=== PATIENT | female | born 1990 | race American Indian/Alaskan Native ===

== ENCOUNTER 2016-11-21 05:07 | Inpatient (IN) | payer MEDICARE ==
[2016-11-21] MEDS ORDERED: LACTATED RINGERS 500 ML IV ONE (05:26)
[2016-11-21] MEDS ORDERED: LACTATED RINGERS 1,000 ML ONE ×3 (05:31→14:41)
[2016-11-21 05:46] LABS: Bilirubin,Urine NEG (Negative); Blood,Urine SM (Negative); Ketones,Urine NEG (Negative); Leukocyte Esterase,Urine TR (Negative); Mucus,Urine FEW /HPF; Nitrite,Urine NEG (Negative); Protein,Urine <15 mg/dL mg/dL (Negative); Urobilinogen,Urine < 2.0 mg/dL (<2.0)
[2016-11-21 06:15] LABS: Hematocrit 35.8 % (30.3-42.9); Hemoglobin 11.6 gm/dl (10.1-14.3); Mean Corpuscular HGB Conc 32 % (30-34); Mean Corpuscular Hemoglobin 29 pg (28-32); Mean Corpuscular Volume 89 fl (79-97); Platelet Count 227 K/mm3 (140-440); Red Blood Count 4.02 M/mm3 (3.65-5.03); Red Cell Distribution Width 14.3 % (13.2-15.2); White Blood Count 8.5 K/mm3 (4.5-11.0)
[2016-11-21 06:36] LABS: Alanine Aminotransferase 7 units/L (7-56); Lactate Dehydrogenase 197 units/L (91-180); Uric Acid 3.3 mg/dL (3.5-7.6)
--- NOTE | 2016-11-21 07:43 | History and Physical Report ---
History of Present Illness Date of examination: 11/21/16 Chief complaint: Uterine contractions, nausea vomiting and diarrhea x 24 hours History of present illness: 26-year-old at ~ 33+ weeks presents with above complaints and issues; she uses [facility] patient. Essential history is patient with nausea vomiting and diarrhea; presents due to painful contractions. No loss of fluid, vaginal bleeding plus movement In triage, patient's blood pressure was noted to be elevated with range 140s to 150s systolic over 70s to 90s diastolic; she is asymptomatic for preeclampsia. HELLP labs obtained are negative; urinalysis shows negative proteinuria Blood pressure in clinic has been unremarkable per patient. She does have a history of elevated blood pressures in her prior 2014; work-up for preeclampsia was negative. Review of the chart shows a visit in March 2015 with blood pressure noted in the emergency room on 130/90, unsure of her primary care visits while not . She has almost completed a course of Flagyl given for BV in the clinic Past History Past Medical History: no pertinent history Past Surgical History: no surgical history [employer]ER History: denies: chlamydia, gonorrhea, hepatitis B, hepatitis C, HIV, trichomonas Social history: single, full code. denies: smoking, alcohol abuse, prescription drug abuse, IV drug use - Obstetrical History Expected Date of Delivery: 01/09/17 Actual Gestation: 33 Week(s) 0 Day(s) : 4 Para: 1 Medications and Allergies Allergies Allergy/AdvReac Type Severity Reaction Status Date / Time No Known Allergies Allergy Verified 08/15/15 16:15 Home Medications Medication Instructions Recorded Confirmed Last Taken Type Ibuprofen [Motrin 800 MG tab] 800 mg PO Q8HR PRN #30 tablet 03/07/16 Unknown Rx Phenazopyridine [Pyridium] 100 mg PO TID #6 tab 03/07/16 Unknown Rx Sulfamethoxazole/Trimethoprim 1 each PO BID #14 tablet 03/07/16 Unknown Rx [Bactrim DS TAB] metroNIDAZOLE 0.75% [Vandazole 1 applicator VG QHS #1 tube 03/07/16 Unknown Rx 0.75% VAGINAL] Review of Systems Constitutional: weakness, no fever, no chills Eyes: no photophobia, no loss of peripheral vision, no blind spots Cardiovascular: no syncope, no lightheadedness, no shortness of breath, no dyspnea on exertion Respiratory: no shortness of breath, no dyspnea on exertion Gastrointestinal: abdominal pain (Intermittent painful contractions), nausea, vomiting, no heartburn, no indigestion Genitourinary: no vaginal bleeding, no vaginal discharge, no leakage of fluid - Vital Signs Vital signs: Vital Signs Pulse BP Pulse Ox 97 H 150/95 99 11/21/16 05:22 11/21/16 05:22 11/21/16 05:22 Temp Pulse Resp BP Pulse Ox 98.8 F 90 20 142/75 99 11/21/16 05:25 11/21/16 07:32 11/21/16 05:25 11/21/16 07:27 11/21/16 07:32 - Physical Exam Cardiovascular: Regular rate, Normal S1, Normal S2 Lungs: Positive: Clear to auscultation, Normal air movement Abdomen: Positive: normal appearance, soft. Negative: distention, tenderness, guarding, rigidity Genitourinary (Female): Positive: normal external genitalia Uterus: Positive: enlarged (EFW ~ 3200). Negative: tender Extremities: Positive: normal - Obstetrical FHR: category 1 Results Result Diagrams: 11/21/16 05:50 11/21/16 05:50 Abnormal lab results 11/21/16 Range/Units 05:50 Creatinine 0.3 L (0.7-1.2) mg/dL Uric Acid 3.3 L (3.5-7.6) mg/dL Lactate Dehydrogenase 197 H (91-180) units/L All other labs normal. Assessment and Plan A: 26 y/o at 33 wks with elevated BP ?Gestational HTN -Cat 1 tracing Issues -BP range 140-150's/70-90's -Negative HELLP labs and UA -?Gastro E (N/V and diarrhea), NB: normal WBC - Ctx's P: -Admit observation -IV hydration -24 hour urine protein collection -Growth Scan, BPP and cervical length -Will start anti-HTN, Mag and consider BMZ course for BP in severe range -Disposition after w/u complete - Patient Problems (1) 33 weeks gestation of Current Visit: Yes Status: Acute (2) Hypertension affecting in third trimester Current Visit: No Status: Acute (3) Diarrhea Current Visit: Yes Status: Acute (4) Vomiting Current Visit: Yes Status: Acute
[2016-11-21] MEDS ORDERED: TYLENOL PO PRN ×2 (08:30)
[2016-11-21] MEDS ORDERED: COLACE PO PRN (08:30)
[2016-11-21] MEDS ORDERED: BENADRYL PO PRN (08:30)
[2016-11-21] MEDS ORDERED: APRESOLINE IV PRN (08:30)
[2016-11-21] MEDS ORDERED: D5LR 1,000 ML IV SCH (08:30)
[2016-11-21] MEDS ORDERED: NORMODYNE IV PRN (08:30)
[2016-11-21] MEDS ORDERED: ZOFRAN IV PRN (08:30)
[2016-11-21] MEDS ORDERED: PRENATAL VITAMIN PO SCH (10:00)
--- NOTE | 2016-11-21 10:12 | Ultrasound Report ---
BIOPHYSICAL PROFILE: INDICATION: Elevated BP. COMPARISON: None similar. TECHNIQUE: Transabdominal ultrasound with Doppler interrogation. 0 - breathing movements 2 - movements 2 - posture and tone 2 - Qualitative amniotic fluid volume 6 - TOTAL SCORE OF POSSIBLE 8 Heart Rate (bpm) 137
--- NOTE | 2016-11-21 11:06 | Ultrasound Report ---
OB ULTRASOUND OB FOLLOWUP - TRANSABDOMINAL AND TRANSVAGINAL: INDICATION: Hypertension in . Evaluate cervical length. COMPARISON: None similar at this institution. TECHNIQUE: Transabdominal grayscale ultrasound with Doppler interrogation. Transvaginal exam to evaluate cervical length also performed. Gestation: mckeon Position: cephalic Amniotic Fluid: WNL (7-24 cm) MALIK = 14.6 cm Placenta: fundal Placental Grade: II Heart Rate: 135 BPM Cervical length: 3.7 cm (Normal > 3 cm) BPD: 8.3 cm = 33 w 2 d HC: 29.4 cm = 32 w 3 d AC: 29.5 cm = 33 w 4 d FL: 6.2 cm = 32 w 0 d HC/AC Ratio: 1.00 Cephalic Index: 91.3 Estimated Weight: 2082 grams LMP: 16 Clinical age = 33 w 0 d EDC: 17 US Gest. Age = 32 w 6 d EDC: 01-10-17 CONCLUSION: Single, viable intrauterine gestation with ultrasound estimated age of 32 weeks and 6 days and EDC of 01/10/2017, currently in cephalic lie with details, as above. Thank you for the opportunity to participate in this patient's care.
[2016-11-21 20:43] VITALS: BP 139/63
--- NOTE | 2016-11-21 23:17 | Event Note ---
Date: 11/21/16 Called and notified that patient left her room w/out notifying staff. She removed her IV access herself and walked out of the hospital.
== END 2016-11-21 21:30 | disposition still patient (30) | DRG 781 ==
LOC: TRG 05:07 → LD 07:59 → UNDOADMOB 07:59 → LD 08:21 → OBSVTOIN 09:14 → LD 23:49
PROVIDERS: ADMIT Obstetrics & Gynecology; ATTEND Obstetrics & Gynecology
DX: O10.913 Unspecified pre-existing hypertension complicating pregnancy, third trimester (principal); O26.893 Other specified pregnancy related conditions, third trimester; R19.7 Diarrhea, unspecified; R11.10 Vomiting, unspecified; Z3A.33 33 weeks gestation of pregnancy
CPT/HCPCS: 36415; 76816; 76817; 76819; 81001; 82565; 82731; 83615; 84450; 84460; 84550; 85027; 86850; 86900; 86901; J7120

== ENCOUNTER 2016-12-06 15:15 | Inpatient (IN) | payer MEDICAID, MEDICARE, OTHER ==
--- NOTE | 2016-12-06 16:35 | History and Physical Report ---
History of Present Illness Date of examination: 12/06/16 Chief complaint: Headache and dizziness History of present illness: 26-year-old at 35 weeks presents with above complaints and issues; she is a [facility] patient. Essential history is patient was seen at [facility] office today. She had a BP of 171/115 and repeat of 149/91 when seated. She denied symptoms of preeclampsia, had a BPP 8/8. [facility] recommendation was low threshold for delivery if BP remains elevated. Was asked to follow-up with her doctor if symptoms develop. She presented to [facility] today and complained of headache visual symptoms, she was refered here for further care. In triage, patient's blood pressure was noted to be elevated with range 140s systolic over 70s to 90s diastolic; she idoes complain of headache and spots, no scotomata. Review of chart shows seen admission on 11/21/2016 for similar complaint above. She left AGAINST MEDICAL ADVICE She does have a history of elevated blood pressures in her prior 2014 ; work-up for preeclampsia was negative. Review of the chart shows a visit in March 2015 with blood pressure noted in the emergency room on 130/90, unsure of her primary care visits while not . Past History Past Medical History: no pertinent history Past Surgical History: no surgical history [employer] History: denies: gonorrhea, hepatitis B, hepatitis C, HIV Social history: single, full code. denies: smoking, alcohol abuse, prescription drug abuse, IV drug use - Obstetrical History Expected Date of Delivery: 01/09/17 Actual Gestation: 35 Week(s) 2 Day(s) : 4 Para: 1 Number of Living Children: 1 Medications and Allergies Allergies Allergy/AdvReac Type Severity Reaction Status Date / Time No Known Allergies Allergy Verified 08/15/15 16:15 Home Medications Medication Instructions Recorded Confirmed Last Taken Type Ibuprofen [Motrin 800 MG tab] 800 mg PO Q8HR PRN #30 tablet 03/07/16 12/06/16 Unknown Rx Phenazopyridine [Pyridium] 100 mg PO TID #6 tab 03/07/16 12/06/16 Unknown Rx Sulfamethoxazole/Trimethoprim 1 each PO BID #14 tablet 03/07/16 12/06/16 Unknown Rx [Bactrim DS TAB] metroNIDAZOLE 0.75% [Vandazole 1 applicator VG QHS #1 tube 03/07/16 12/06/16 Unknown Rx 0.75% VAGINAL] Active Meds: Active Medications Lactated Ringer's (Lactated Ringers) 500 mls @ 999 mls/hr IV BOLUS ONE Stop: 12/06/16 17:30 Review of Systems Constitutional: no fever, no chills Cardiovascular: high blood pressure, no chest pain, no orthopnea, no syncope, no lightheadedness, no shortness of breath, no dyspnea on exertion Respiratory: no cough, no cough with sputum, no hemoptysis, no shortness of breath, no dyspnea on exertion Gastrointestinal: no abdominal pain, no nausea, no vomiting, no heartburn Genitourinary: no vaginal bleeding, no vaginal discharge, no leakage of fluid - Vital Signs Vital signs: Vital Signs Pulse BP Pulse Ox 68 140/100 100 12/06/16 16:16 12/06/16 16:16 12/06/16 16:16 Temp Pulse Resp BP Pulse Ox 58 L 140/100 99 12/06/16 16:21 12/06/16 16:16 12/06/16 16:21 - Physical Exam Cardiovascular: Regular rate, Normal S1, Normal S2 Lungs: Positive: Clear to auscultation Abdomen: Positive: normal appearance, soft. Negative: distention, tenderness, guarding, rigidity Uterus: Positive: enlarged. Negative: tender - Obstetrical FHR: category 1 Results Result Diagrams: 12/06/16 19:37 12/06/16 16:26 All other labs normal. Assessment and Plan A: 26 y/o at 35 wks presents with elevated BP in -BPP 8/ today -EFW 2467 g or 5#7 oz, cephalic, Post placenta (12/06/16) P: -Admit -Obtain HELLP labs -Re-start 24 hr urine protein -Start Mag and AntiHTN for severe range BP's -Celestone course -Disposition after results complete - Patient Problems (1) 35 weeks gestation of Current Visit: Yes Status: Acute (2) Hypertension affecting in third trimester Current Visit: No Status: Acute
[2016-12-06] MEDS ORDERED: ZOFRAN IV PRN (16:45)
[2016-12-06] MEDS ORDERED: MYLICON PO PRN (16:45)
[2016-12-06] MEDS ORDERED: ALUM-MAG HYDROX-SIMETH 200-200-20MG/5ML PO PRN (16:45)
[2016-12-06] MEDS ORDERED: MILK OF MAGNESIA PO PRN (16:45)
[2016-12-06] MEDS ORDERED: AMBIEN PO PRN (16:45)
[2016-12-06] MEDS ORDERED: COLACE PO PRN (16:45)
[2016-12-06 16:48] LABS: Hematocrit 32.9 % (30.3-42.9); Hemoglobin 10.9 gm/dl (10.1-14.3); Mean Corpuscular HGB Conc 33 % (30-34); Mean Corpuscular Hemoglobin 29 pg (28-32); Mean Corpuscular Volume 88 fl (79-97); Platelet Count 203 K/mm3 (140-440); Red Blood Count 3.75 M/mm3 (3.65-5.03); Red Cell Distribution Width 14.8 % (13.2-15.2); White Blood Count 7.1 K/mm3 (4.5-11.0)
[2016-12-06 16:54] LABS: Bilirubin,Urine NEG (Negative); Blood,Urine NEG (Negative); Ketones,Urine NEG (Negative); Leukocyte Esterase,Urine NEG (Negative); Mucus,Urine FEW /HPF; Nitrite,Urine NEG (Negative); Protein,Urine <15 mg/dL mg/dL (Negative); Urobilinogen,Urine < 2.0 mg/dL (<2.0)
[2016-12-06] MEDS ORDERED: LACTATED RINGERS 500 ML IV ONE (17:00)
[2016-12-06] MEDS ORDERED: CELESTONE SOLUSPAN IM SCH (17:00)
[2016-12-06 17:11] LABS: Alanine Aminotransferase 7 units/L (7-56); Lactate Dehydrogenase 283 units/L (91-180); Uric Acid 3.1 mg/dL (3.5-7.6)
[2016-12-06 20:15] LABS: Basophils % (Auto) 0.2 % (0.0-1.8); Eosinophils % (Auto) 2.4 % (0.0-4.3); Hematocrit 31.4 % (30.3-42.9); Hemoglobin 10.3 gm/dl (10.1-14.3); Mean Corpuscular HGB Conc 33 % (30-34); Mean Corpuscular Hemoglobin 29 pg (28-32); Mean Corpuscular Volume 88 fl (79-97); Platelet Count 187 K/mm3 (140-440); Red Blood Count 3.56 M/mm3 (3.65-5.03); Red Cell Distribution Width 14.6 % (13.2-15.2); White Blood Count 6.6 K/mm3 (4.5-11.0)
--- NOTE | 2016-12-06 23:11 | Progress Note ---
Assessment and Plan A: 26 y/o at 35 wks presents with elevated BP in -Cat 1 tracing now -BPP 06/11 today -EFW 2467 g or 5#7 oz, cephalic, Post placenta (12/06/16) P: -Continue present care - Patient Problems (1) 35 weeks gestation of Current Visit: Yes Status: Acute (2) Hypertension affecting in third trimester Current Visit: No Status: Acute Subjective - Subjective Date of service: 12/06/16 Interval history: Asked to review tracing. Currently with mod variabilty + accels no decels. Appears to have had mild latish appearing decels earlier but still with Mod variabilty and accels Patient reports: new complaints, movement normal, contractions ( Intermittent contractions), no loss of fluid, no vaginal bleeding Objective - Vital Signs Vital Signs: Vital Signs - 12hr 12/06/16 12/06/16 12/06/16 16:16 16:21 16:26 Temperature Pulse Rate 68 58 L 64 Pulse Rate [ Left From Monitor] Respiratory Rate Blood Pressure 140/100 Blood Pressure [Right Arm] O2 Sat by Pulse 100 99 100 Oximetry 12/06/16 12/06/16 12/06/16 16:31 16:36 16:41 Temperature Pulse Rate 67 70 75 Pulse Rate [ Left From Monitor] Respiratory Rate Blood Pressure Blood Pressure [Right Arm] O2 Sat by Pulse 100 100 100 Oximetry 12/06/16 12/06/16 12/06/16 16:46 16:51 16:56 Temperature Pulse Rate 64 70 65 Pulse Rate [ Left From Monitor] Respiratory Rate Blood Pressure Blood Pressure [Right Arm] O2 Sat by Pulse 100 99 99 Oximetry 12/06/16 12/06/16 12/06/16 17:01 17:06 17:11 Temperature Pulse Rate 76 65 69 Pulse Rate [ Left From Monitor] Respiratory Rate Blood Pressure 155/86 Blood Pressure [Right Arm] O2 Sat by Pulse 99 99 Oximetry 12/06/16 12/06/16 12/06/16 17:12 17:17 17:22 Temperature Pulse Rate 74 74 89 Pulse Rate [ Left From Monitor] Respiratory Rate Blood Pressure Blood Pressure [Right Arm] O2 Sat by Pulse 100 100 99 Oximetry 12/06/16 12/06/16 12/06/16 17:23 17:27 18:05 Temperature Pulse Rate 80 103 H 89 Pulse Rate [ Left From Monitor] Respiratory Rate Blood Pressure 190/100 Blood Pressure [Right Arm] O2 Sat by Pulse 99 99 Oximetry 12/06/16 12/06/16 12/06/16 18:08 18:10 18:15 Temperature Pulse Rate 67 68 78 Pulse Rate [ Left From Monitor] Respiratory Rate Blood Pressure 161/94 Blood Pressure [Right Arm] O2 Sat by Pulse 99 100 Oximetry 12/06/16 12/06/16 12/06/16 18:20 18:23 18:25 Temperature Pulse Rate 72 82 84 Pulse Rate [ Left From Monitor] Respiratory Rate Blood Pressure 158/84 Blood Pressure [Right Arm] O2 Sat by Pulse 99 100 Oximetry 12/06/16 12/06/16 12/06/16 18:30 18:35 18:37 Temperature Pulse Rate 103 H 79 68 Pulse Rate [ Left From Monitor] Respiratory Rate Blood Pressure 139/74 Blood Pressure [Right Arm] O2 Sat by Pulse 100 99 Oximetry 12/06/16 12/06/16 12/06/16 18:40 18:45 18:50 Temperature Pulse Rate 74 75 78 Pulse Rate [ Left From Monitor] Respiratory Rate Blood Pressure Blood Pressure [Right Arm] O2 Sat by Pulse 99 100 100 Oximetry 12/06/16 12/06/16 12/06/16 18:52 18:55 19:00 Temperature Pulse Rate 82 72 67 Pulse Rate [ Left From Monitor] Respiratory Rate Blood Pressure 148/78 Blood Pressure [Right Arm] O2 Sat by Pulse 100 98 Oximetry 12/06/16 12/06/16 12/06/16 19:05 19:07 19:10 Temperature Pulse Rate 75 73 70 Pulse Rate [ Left From Monitor] Respiratory Rate Blood Pressure 133/70 Blood Pressure [Right Arm] O2 Sat by Pulse 100 98 Oximetry 12/06/16 12/06/16 12/06/16 19:15 19:20 19:22 Temperature 98.2 F Pulse Rate 68 66 64 Pulse Rate [ 64 Left From Monitor] Respiratory 18 Rate Blood Pressure 139/73 Blood Pressure 139/73 [Right Arm] O2 Sat by Pulse 99 97 Oximetry 12/06/16 12/06/16 12/06/16 19:25 19:30 19:35 Temperature Pulse Rate 59 L 67 67 Pulse Rate [ Left From Monitor] Respiratory Rate Blood Pressure Blood Pressure [Right Arm] O2 Sat by Pulse 98 98 100 Oximetry 12/06/16 12/06/16 12/06/16 19:40 19:41 19:45 Temperature Pulse Rate 72 57 L 59 L Pulse Rate [ 57 L Left From Monitor] Respiratory 18 Rate Blood Pressure 146/68 Blood Pressure 146/68 [Right Arm] O2 Sat by Pulse 100 100 Oximetry 12/06/16 12/06/16 12/06/16 19:50 19:54 19:55 Temperature Pulse Rate 63 61 66 Pulse Rate [ 61 Left From Monitor] Respiratory 18 Rate Blood Pressure 130/69 Blood Pressure 130/69 [Right Arm] O2 Sat by Pulse 100 99 Oximetry 12/06/16 12/06/16 12/06/16 20:00 20:05 20:07 Temperature Pulse Rate 64 61 57 L Pulse Rate [ 57 L Left From Monitor] Respiratory 18 Rate Blood Pressure 122/63 Blood Pressure 122/63 [Right Arm] O2 Sat by Pulse 97 97 Oximetry 12/06/16 12/06/16 12/06/16 20:10 20:15 20:20 Temperature Pulse Rate 63 63 64 Pulse Rate [ Left From Monitor] Respiratory Rate Blood Pressure Blood Pressure [Right Arm] O2 Sat by Pulse 98 97 97 Oximetry 12/06/16 12/06/16 12/06/16 20:23 20:25 20:30 Temperature Pulse Rate 59 L 61 56 L Pulse Rate [ 59 L Left From Monitor] Respiratory 18 Rate Blood Pressure 114/75 Blood Pressure 114/75 [Right Arm] O2 Sat by Pulse 98 98 Oximetry 12/06/16 12/06/16 12/06/16 20:35 20:37 20:40 Temperature Pulse Rate 64 62 70 Pulse Rate [ 62 Left From Monitor] Respiratory 18 Rate Blood Pressure 122/76 Blood Pressure 122/76 [Right Arm] O2 Sat by Pulse 98 98 Oximetry 12/06/16 12/06/16 12/06/16 20:45 20:50 20:52 Temperature Pulse Rate 63 65 65 Pulse Rate [ 65 Left From Monitor] Respiratory 18 Rate Blood Pressure 128/73 Blood Pressure 128/73 [Right Arm] O2 Sat by Pulse 98 98 Oximetry 12/06/16 12/06/16 12/06/16 20:55 21:00 21:05 Temperature Pulse Rate 60 67 57 L Pulse Rate [ Left From Monitor] Respiratory Rate Blood Pressure Blood Pressure [Right Arm] O2 Sat by Pulse 99 98 98 Oximetry 12/06/16 12/06/16 12/06/16 21:08 21:10 21:15 Temperature Pulse Rate 60 57 L 57 L Pulse Rate [ 60 Left From Monitor] Respiratory 18 Rate Blood Pressure 147/86 Blood Pressure 147/86 [Right Arm] O2 Sat by Pulse 99 97 Oximetry 12/06/16 12/06/16 12/06/16 21:20 21:24 21:25 Temperature Pulse Rate 60 56 L 64 Pulse Rate [ Left From Monitor] Respiratory Rate Blood Pressure 136/77 Blood Pressure [Right Arm] O2 Sat by Pulse 98 98 Oximetry 12/06/16 12/06/16 12/06/16 21:30 21:35 21:37 Temperature Pulse Rate 57 L 63 79 Pulse Rate [ Left From Monitor] Respiratory Rate Blood Pressure Blood Pressure [Right Arm] O2 Sat by Pulse 97 98 91 Oximetry 12/06/16 12/06/16 12/06/16 21:40 21:45 21:50 Temperature Pulse Rate 64 58 L 62 Pulse Rate [ Left From Monitor] Respiratory Rate Blood Pressure 133/79 Blood Pressure [Right Arm] O2 Sat by Pulse 98 98 96 Oximetry 12/06/16 12/06/16 12/06/16 21:55 22:00 22:05 Temperature Pulse Rate 57 L 56 L 58 L Pulse Rate [ Left From Monitor] Respiratory Rate Blood Pressure Blood Pressure [Right Arm] O2 Sat by Pulse 98 98 98 Oximetry 12/06/16 12/06/16 12/06/16 22:10 22:15 22:20 Temperature Pulse Rate 59 L 61 60 Pulse Rate [ Left From Monitor] Respiratory Rate Blood Pressure Blood Pressure [Right Arm] O2 Sat by Pulse 97 97 97 Oximetry 12/06/16 12/06/16 22:25 22:43 Temperature Pulse Rate 57 L 56 L Pulse Rate [ Left From Monitor] Respiratory Rate Blood Pressure 137/71 Blood Pressure [Right Arm] O2 Sat by Pulse 99 Oximetry - Exam FHR: category 1 (At this time) - Labs Labs: Abnormal Labs 12/06/16 12/06/16 16:26 19:37 RBC 3.56 L [place] % (Auto) 7.9 H Creatinine 0.3 L Uric Acid 3.1 L Lactate Dehydrogenase 283 H Laboratory Results - last 24 hr 12/06/16 12/06/16 12/06/16 16:26 16:26 16:26 WBC 7.1 RBC 3.75 Hgb 10.9 Hct 32.9 MCV 88 MCH 29 MCHC 33 RDW 14.8 Plt Count 203 Lymph % (Auto) F[place] % (Auto) Eos % (Auto) Baso % (Auto) Lymph # Fountain # Eos # Baso # Seg Neutrophils % Seg Neutrophils # Creatinine 0.3 L Estimated GFR > 60 Uric Acid 3.1 L AST 20 ALT 7 Lactate Dehydrogenase 283 H Urine Color Yellow Urine Turbidity Clear Urine pH 7.0 Ur Specific [place] 1.017 Urine Protein <15 mg/dl Urine Glucose (UA) Neg Urine Ketones Neg Urine Blood Neg Urine Nitrite Neg Urine Bilirubin Neg Urine Urobilinogen < 2.0 Ur Leukocyte Esterase Neg Urine WBC (Auto) 1.0 Urine RBC (Auto) 1.0 U Epithel Cells (Auto) 1.0 Urine Mucus Few Blood Type Antibody Screen 12/06/16 12/06/16 19:37 19:37 WBC 6.6 RBC 3.56 L Hgb 10.3 Hct 31.4 MCV 88 MCH 29 MCHC 33 RDW 14.6 Plt Count 187 Lymph % (Auto) 28.0 [place] % (Auto) 7.9 H Eos % (Auto) 2.4 Baso % (Auto) 0.2 Lymph # 1.9 Fountain # 0.5 Eos # 0.2 Baso # 0.0 Seg Neutrophils % 61.5 Seg Neutrophils # 4.1 Creatinine Estimated GFR Uric Acid AST ALT Lactate Dehydrogenase Urine Color Urine Turbidity Urine pH Ur Specific [place] Urine Protein Urine Glucose (UA) Urine Ketones Urine Blood Urine Nitrite Urine Bilirubin Urine Urobilinogen Ur Leukocyte Esterase Urine WBC (Auto) Urine RBC (Auto) U Epithel Cells (Auto) Urine Mucus Blood Type B POSITIVE Antibody Screen Negative
[2016-12-06] MEDS ORDERED: LACTATED RINGERS 1,000 ML ONE (23:39)
--- NOTE | 2016-12-07 07:30 | Admit Criteria Form ---
Admission Criteria Documentation: OBSTETRIC AND GYNECOLOGIC DISEASE GRG Clinical Indications for Admission to Inpatient Care (Place 'X' for any and all applicable criteria): Hospital admission is needed for appropriate care of the patient because of ANY ONE of the following (1)(2)(3): [ ]I. Hemodynamic instability, as indicated by ALL of the following (1)(2)(3)( 4)(5): [ ]a) Vital signs or other findings not as expected for chronic patient condition or baseline [ ]b) Instability indicated by ANY ONE of the following: [ ]i) Hypotension [ ]ii) Symptomatic tachycardia unresponsive to treatment (eg, analgesia, fluids, sedation as indicated) [ ]iii) Inadequate perfusion indicated by ANY ONE of the following: [ ]A. Lactic acidosis (greater than 2 mmol/ L) [ ]B. New abnormal capillary refill ( greater than 3 seconds) [ ]C. Reduced urine output [ ]D. New altered mental status [ ]iv) Orthostatic vital sign changes unresponsive to treatment (eg, fluids) [ ]v) Multiple IV fluid boluses required to maintain adequate blood pressure or perfusion [ ]vi) IV inotropic or vasopressor medication required to maintain adequate blood pressure or perfusion [ ]II. Obstetric infection requiring hospitalization indicated by ANY ONE of the following(13)(14): [ ]a) Chorioamnionitis [ ]b) Endometritis (except mild endometritis) [ ]c) Pelvic abscess [ ]d) Peritonitis [ ]e) Septic pelvic thrombophlebitis [ ]III. Amniotic fluid or pulmonary embolism(4)(5)(6) [ ]IV. Suspected peritonitis or ectopic requiring monitoring beyond scope of 24 hours or observation care(7)(8) [ ]V. compromise requiring hospitalization indicated by ALL of the following(9)(10): [ ]a) compromise indicated by ANY ONE of the following(11): [ ]i) Abnormal heart rate monitoring [ ]ii) Abnormal contraction stress test [ ]iii) Abnormal biophysical profile [ ]iv) Abnormal Doppler flow in vessels (ie, Doppler velocimetry) (12) [ ]b) Persistence of compromise indicators during evaluation and observation monitoring [ ]. Ovarian hyperstimulation syndrome requiring hospitalization[A] indicated by ALL of the following(15): [ ]a) Recent ovarian stimulation with gonadotropins, or evidence on ultrasound of spontaneous emergence of large number of ovarian follicles [ ]b) Evidence of severe ovarian hyperstimulation syndrome indicated by ANY ONE of the following: [ ]i) Abdominal pain unresponsive to oral therapy [ ]ii) Acute respiratory distress syndrome [ ]iii) Electrolyte imbalance ( eg, hyponatremia, hyperkalemia) [ ]iv) Elevated liver enzymes [ ]v) Evidence of thromboembolism [ ]vi) Hemoconcentration (hematocrit greater than 45 % (0.45)) [ ]vii) Inability to maintain oral intake adequate to prevent hemoconcentration [ ]viii) Marked hypotension from baseline (eg, SBP 20 mmHg below patients usual pressure) [ ]ix) Oliguria or anuria [ ]x) Ovarian torsion [ ]xi) Pleural or pericardial effusion on x-ray or echocardiogram [ ]xii) Rapid increase in serum creatinine to greater than 1.2 mg/dL (106 micromoles/L) or creatinine clearance less than 50 mL/min/1.73m2 (0.84 mL/ sec/1.73m2) [ ]xiii) Ruptured ovarian cyst with hemorrhage [ ]xiv) Severe abdominal pain or peritoneal signs [ ]xv) Tense ascites that cannot be managed with paracentesis in outpatient setting [ ]VII.Pelvic infection requiring hospitalization indicated by ANY ONE of the following (16): [ ]a) Outpatient treatment has failed or is not appropriate (eg, inpatient monitoring required) [ ]b) Pelvic abscess [ ]c) Surgical emergency cannot be excluded (eg, rigid abdomen) [ ]d) Vomiting precluding outpatient and observation care management VIII. loss complications requiring inpatient medical treatment indicated by ANY ONE of the following (4)(7)(9): [ ]a) Fever [ ]b) Peritonitis [ ]c) Sepsis [ ]d) Severe abdominal pain [ ]IX. or patient requiring monitoring for severe heart failure, pulmonary disease, or other comorbid condition (eg, peripartum cardiomyopathy) (4)(17) [ ]X. patient with rupture of membranes requiring hospitalization indicated by ANY ONE of the following: [ ]a) Chorioamnionitis, cloudy amniotic fluid, or other evidence of infection [ ]b) compromise or other need for monitoring (11) [ ]c) Gestation longer than 23 weeks and ANY ONE of the following: [ ]i) Abnormal (noncephalic) presentation [ ]ii) Inadequate home environment (eg, home too far from hospital, unable to rapidly return to hospital) [ ]d) Temperature greater than 100.4 degrees F (38 degrees C)( oral) [ ]e) Threatened labor requiring monitoring beyond scope (eg, over 24 hours) of observation Care [ ] XI. complications, including severe lacerations, infections, or retained placenta (19) [ ] XII.Uterine bleeding with high-risk features indicated by ANY ONE of the following (4): [ ]a) Active major hemorrhage (eg, hemorrhage) [ ]b) Coagulopathy with active bleeding [ ]c) Gestational trophoblastic disease (eg, molar ) (20 ) [ ]d) (longer than 23 weeks) and ANY ONE of the following: [ ]i) Pain [ ]ii) Placental abruption, known or suspected [ ]iii) Placenta accrete, known or suspected(21) [ ]iv) Placenta previa, known or suspected [ ]v) Vasa previa [ ]e) Severe anemia [X ]XIII. Obstetric or Gynecologic Disease, condition or symptom for which ANY ONE of the following: [ X]a) Emergency and observation care have failed or are not considered appropriate ( Also use General Criteria: Observation Care Criteria as appropriate) [ ]b) Presence of a General Admission Criteria or Pediatric General Admission Criteria The original [facility] content created by [facility] has been revised. The portions of the content which have been revised are identified through the use of italic text or in bold, and [facility] has neither reviewed nor approved the modified material.All other unmodified content is copyright [facility]. Please see references footnoted in the original [facility] edition 2016 Admission Criteria Met: Yes
--- NOTE | 2016-12-07 07:33 | Progress Note ---
Assessment and Plan - Patient Problems (1) 35 weeks gestation of Onset Date: 12/07/16 Current Visit: Yes Status: Acute Plan to address problem: A: IUP @ 35 1/7 weeks PIH - stable - BPP 06/11 - PIH labs WNL - Awaiting 24hr urine collection P: Continue present management Awaiting 24hr urine collection (2) Hypertension affecting in third trimester Onset Date: 12/07/16 Current Visit: No Status: Acute Subjective - Subjective Date of service: 12/07/16 Principal diagnosis: IUP @ 35 1/7 weeks; PIH Interval history: Pt is feeling well without complaints. Denies headaches or blurred vision, contractions or bleeding. +FM Patient reports: movement normal, no new complaints, no loss of fluid, no vaginal bleeding Objective - Vital Signs Vital Signs: Vital Signs - 12hr 12/06/16 12/06/16 12/06/16 19:35 19:40 19:41 Temperature Pulse Rate 67 72 57 L Pulse Rate [ 57 L Left From Monitor] Respiratory 18 Rate Blood Pressure 146/68 Blood Pressure 146/68 [Right Arm] O2 Sat by Pulse 100 100 Oximetry 12/06/16 12/06/16 12/06/16 19:45 19:50 19:54 Temperature Pulse Rate 59 L 63 61 Pulse Rate [ 61 Left From Monitor] Respiratory 18 Rate Blood Pressure 130/69 Blood Pressure 130/69 [Right Arm] O2 Sat by Pulse 100 100 Oximetry 12/06/16 12/06/16 12/06/16 19:55 20:00 20:05 Temperature Pulse Rate 66 64 61 Pulse Rate [ Left From Monitor] Respiratory Rate Blood Pressure Blood Pressure [Right Arm] O2 Sat by Pulse 99 97 97 Oximetry 12/06/16 12/06/16 12/06/16 20:07 20:10 20:15 Temperature Pulse Rate 57 L 63 63 Pulse Rate [ 57 L Left From Monitor] Respiratory 18 Rate Blood Pressure 122/63 Blood Pressure 122/63 [Right Arm] O2 Sat by Pulse 98 97 Oximetry 12/06/16 12/06/16 12/06/16 20:20 20:23 20:25 Temperature Pulse Rate 64 59 L 61 Pulse Rate [ 59 L Left From Monitor] Respiratory 18 Rate Blood Pressure 114/75 Blood Pressure 114/75 [Right Arm] O2 Sat by Pulse 97 98 Oximetry 02/12/2112/06/16 12/06/16 20:30 20:35 20:37 Temperature Pulse Rate 56 L 64 62 Pulse Rate [ 62 Left From Monitor] Respiratory 18 Rate Blood Pressure 122/76 Blood Pressure 122/76 [Right Arm] O2 Sat by Pulse 98 98 Oximetry 12/06/16 12/06/16 12/06/16 20:40 20:45 20:50 Temperature Pulse Rate 70 63 65 Pulse Rate [ Left From Monitor] Respiratory Rate Blood Pressure Blood Pressure [Right Arm] O2 Sat by Pulse 98 98 98 Oximetry 12/06/16 12/06/16 12/06/16 20:52 20:55 21:00 Temperature Pulse Rate 65 60 67 Pulse Rate [ 65 Left From Monitor] Respiratory 18 Rate Blood Pressure 128/73 Blood Pressure 128/73 [Right Arm] O2 Sat by Pulse 99 98 Oximetry 12/06/16 12/06/16 12/06/16 21:05 21:08 21:10 Temperature Pulse Rate 57 L 60 57 L Pulse Rate [ 60 Left From Monitor] Respiratory 18 Rate Blood Pressure 147/86 Blood Pressure 147/86 [Right Arm] O2 Sat by Pulse 98 99 Oximetry 12/06/16 12/06/16 12/06/16 21:15 21:20 21:24 Temperature Pulse Rate 57 L 60 56 L Pulse Rate [ Left From Monitor] Respiratory Rate Blood Pressure 136/77 Blood Pressure [Right Arm] O2 Sat by Pulse 97 98 Oximetry 12/06/16 12/06/16 12/06/16 21:25 21:30 21:35 Temperature Pulse Rate 64 57 L 63 Pulse Rate [ Left From Monitor] Respiratory Rate Blood Pressure Blood Pressure [Right Arm] O2 Sat by Pulse 98 97 98 Oximetry 12/06/16 12/06/16 12/06/16 21:37 21:40 21:45 Temperature Pulse Rate 79 64 58 L Pulse Rate [ Left From Monitor] Respiratory Rate Blood Pressure 133/79 Blood Pressure [Right Arm] O2 Sat by Pulse 91 98 98 Oximetry 12/06/16 12/06/16 12/06/16 21:50 21:55 22:00 Temperature Pulse Rate 62 57 L 56 L Pulse Rate [ Left From Monitor] Respiratory Rate Blood Pressure Blood Pressure [Right Arm] O2 Sat by Pulse 96 98 98 Oximetry 12/06/16 12/06/16 12/06/16 22:05 22:10 22:15 Temperature Pulse Rate 58 L 59 L 61 Pulse Rate [ Left From Monitor] Respiratory Rate Blood Pressure Blood Pressure [Right Arm] O2 Sat by Pulse 98 97 97 Oximetry 12/06/16 12/06/16 12/06/16 22:20 22:25 22:43 Temperature Pulse Rate 60 57 L 56 L Pulse Rate [ Left From Monitor] Respiratory Rate Blood Pressure 137/71 Blood Pressure [Right Arm] O2 Sat by Pulse 97 99 Oximetry 12/06/16 12/06/16 12/06/16 23:00 23:43 23:45 Temperature 98.0 F Pulse Rate 75 83 Pulse Rate [ 75 Left From Monitor] Respiratory 18 Rate Blood Pressure 131/75 Blood Pressure 131/75 [Right Arm] O2 Sat by Pulse 99 Oximetry 12/06/16 12/06/16 12/07/16 23:50 23:55 00:00 Temperature Pulse Rate 63 77 64 Pulse Rate [ Left From Monitor] Respiratory Rate Blood Pressure Blood Pressure [Right Arm] O2 Sat by Pulse 99 99 98 Oximetry 12/07/16 12/07/16 12/07/16 00:05 00:10 00:15 Temperature Pulse Rate 70 74 59 L Pulse Rate [ Left From Monitor] Respiratory Rate Blood Pressure Blood Pressure [Right Arm] O2 Sat by Pulse 98 99 99 Oximetry 12/07/16 12/07/16 12/07/16 00:20 00:25 00:30 Temperature Pulse Rate 79 63 76 Pulse Rate [ Left From Monitor] Respiratory Rate Blood Pressure Blood Pressure [Right Arm] O2 Sat by Pulse 97 98 97 Oximetry 12/07/16 12/07/16 12/07/16 00:35 00:40 00:43 Temperature Pulse Rate 55 L 79 68 Pulse Rate [ 68 Left From Monitor] Respiratory 18 Rate Blood Pressure 114/60 Blood Pressure 114/60 [Right Arm] O2 Sat by Pulse 98 97 Oximetry 12/07/16 12/07/16 12/07/16 00:45 00:50 00:55 Temperature Pulse Rate 66 67 74 Pulse Rate [ Left From Monitor] Respiratory Rate Blood Pressure Blood Pressure [Right Arm] O2 Sat by Pulse 98 97 97 Oximetry 12/07/16 12/07/16 12/07/16 01:01 01:04 01:07 Temperature Pulse Rate 73 Pulse Rate [ Left From Monitor] Respiratory Rate Blood Pressure Blood Pressure [Right Arm] O2 Sat by Pulse 6 L 41 L 65 L Oximetry 12/07/16 12/07/16 12/07/16 01:09 01:15 01:20 Temperature Pulse Rate 39 L 62 68 Pulse Rate [ Left From Monitor] Respiratory Rate Blood Pressure Blood Pressure [Right Arm] O2 Sat by Pulse 100 97 98 Oximetry 12/07/16 12/07/16 12/07/16 01:25 01:30 01:35 Temperature Pulse Rate 56 L 88 72 Pulse Rate [ Left From Monitor] Respiratory Rate Blood Pressure Blood Pressure [Right Arm] O2 Sat by Pulse 98 97 98 Oximetry 12/07/16 12/07/16 12/07/16 01:40 01:44 01:45 Temperature Pulse Rate 57 L 63 66 Pulse Rate [ 64 Left From Monitor] Respiratory 18 Rate Blood Pressure 131/65 Blood Pressure 131/65 [Right Arm] O2 Sat by Pulse 98 98 Oximetry 12/07/16 12/07/16 12/07/16 01:50 01:55 02:00 Temperature Pulse Rate 82 64 65 Pulse Rate [ Left From Monitor] Respiratory Rate Blood Pressure Blood Pressure [Right Arm] O2 Sat by Pulse 97 98 98 Oximetry 12/07/16 12/07/16 12/07/16 02:05 02:10 02:15 Temperature Pulse Rate 84 65 65 Pulse Rate [ Left From Monitor] Respiratory Rate Blood Pressure Blood Pressure [Right Arm] O2 Sat by Pulse 97 98 97 Oximetry 12/07/16 12/07/16 12/07/16 02:20 02:25 02:30 Temperature Pulse Rate 66 59 L 62 Pulse Rate [ Left From Monitor] Respiratory Rate Blood Pressure Blood Pressure [Right Arm] O2 Sat by Pulse 98 98 99 Oximetry 12/07/16 12/07/16 12/07/16 02:35 02:40 02:43 Temperature Pulse Rate 81 61 80 Pulse Rate [ Left From Monitor] Respiratory Rate Blood Pressure 136/81 Blood Pressure [Right Arm] O2 Sat by Pulse 97 98 Oximetry 12/07/16 12/07/16 12/07/16 02:45 02:50 02:55 Temperature Pulse Rate 71 62 59 L Pulse Rate [ Left From Monitor] Respiratory Rate Blood Pressure Blood Pressure [Right Arm] O2 Sat by Pulse 98 98 99 Oximetry 12/07/16 12/07/16 12/07/16 03:00 03:05 03:10 Temperature Pulse Rate 72 60 59 L Pulse Rate [ Left From Monitor] Respiratory Rate Blood Pressure Blood Pressure [Right Arm] O2 Sat by Pulse 97 98 98 Oximetry 12/07/16 12/07/16 12/07/16 03:15 03:20 03:25 Temperature Pulse Rate 58 L 54 L 64 Pulse Rate [ Left From Monitor] Respiratory Rate Blood Pressure Blood Pressure [Right Arm] O2 Sat by Pulse 97 99 99 Oximetry 12/07/16 12/07/16 12/07/16 03:30 03:58 04:03 Temperature Pulse Rate 59 L 107 H 81 Pulse Rate [ Left From Monitor] Respiratory Rate Blood Pressure Blood Pressure [Right Arm] O2 Sat by Pulse 99 100 99 Oximetry 12/07/16 12/07/16 12/07/16 04:08 04:13 04:18 Temperature Pulse Rate 63 68 76 Pulse Rate [ Left From Monitor] Respiratory Rate Blood Pressure Blood Pressure [Right Arm] O2 Sat by Pulse 99 99 99 Oximetry 12/07/16 12/07/16 12/07/16 04:23 04:28 04:33 Temperature Pulse Rate 60 78 64 Pulse Rate [ Left From Monitor] Respiratory Rate Blood Pressure Blood Pressure [Right Arm] O2 Sat by Pulse 99 99 99 Oximetry 12/07/16 12/07/16 12/07/16 04:38 04:43 04:48 Temperature Pulse Rate 76 74 60 Pulse Rate [ 68 Left From Monitor] Respiratory 18 Rate Blood Pressure 123/67 Blood Pressure 123/67 [Right Arm] O2 Sat by Pulse 98 98 98 Oximetry 12/07/16 12/07/16 12/07/16 04:53 04:58 05:03 Temperature Pulse Rate 77 79 61 Pulse Rate [ Left From Monitor] Respiratory Rate Blood Pressure Blood Pressure [Right Arm] O2 Sat by Pulse 98 98 98 Oximetry 12/07/16 12/07/16 12/07/16 05:08 05:13 05:18 Temperature Pulse Rate 100 H 63 58 L Pulse Rate [ Left From Monitor] Respiratory Rate Blood Pressure Blood Pressure [Right Arm] O2 Sat by Pulse 98 100 100 Oximetry 12/07/16 12/07/16 12/07/16 05:23 05:28 05:33 Temperature Pulse Rate 62 79 61 Pulse Rate [ Left From Monitor] Respiratory Rate Blood Pressure Blood Pressure [Right Arm] O2 Sat by Pulse 99 100 99 Oximetry 12/07/16 12/07/16 12/07/16 05:38 05:56 06:01 Temperature Pulse Rate 87 57 L 65 Pulse Rate [ Left From Monitor] Respiratory Rate Blood Pressure Blood Pressure [Right Arm] O2 Sat by Pulse 99 100 100 Oximetry 12/07/16 12/07/16 12/07/16 06:06 06:11 06:16 Temperature Pulse Rate 72 62 62 Pulse Rate [ Left From Monitor] Respiratory Rate Blood Pressure Blood Pressure [Right Arm] O2 Sat by Pulse 99 99 99 Oximetry 12/07/16 12/07/16 12/07/16 06:21 06:26 06:31 Temperature Pulse Rate 69 59 L 62 Pulse Rate [ Left From Monitor] Respiratory Rate Blood Pressure Blood Pressure [Right Arm] O2 Sat by Pulse 99 100 99 Oximetry 12/07/16 12/07/16 12/07/16 06:36 06:41 06:43 Temperature Pulse Rate 62 59 L 56 L Pulse Rate [ Left From Monitor] Respiratory Rate Blood Pressure 138/78 Blood Pressure [Right Arm] O2 Sat by Pulse 100 99 Oximetry 12/07/16 12/07/16 12/07/16 06:46 06:51 06:56 Temperature Pulse Rate 61 57 L 64 Pulse Rate [ Left From Monitor] Respiratory Rate Blood Pressure Blood Pressure [Right Arm] O2 Sat by Pulse 100 100 100 Oximetry 12/07/16 12/07/16 12/07/16 07:02 07:07 07:12 Temperature Pulse Rate 63 87 73 Pulse Rate [ Left From Monitor] Respiratory Rate Blood Pressure Blood Pressure [Right Arm] O2 Sat by Pulse 100 99 100 Oximetry 12/07/16 12/07/16 12/07/16 07:17 07:22 07:27 Temperature Pulse Rate 65 66 57 L Pulse Rate [ Left From Monitor] Respiratory Rate Blood Pressure Blood Pressure [Right Arm] O2 Sat by Pulse 100 99 100 Oximetry - Exam Breasts: deferred Lungs: Clear to auscultation Abdomen: Present: normal appearance Uterus: Present: normal FHR: category 1 Uterine Contraction Monitor Mode: External Uterine Contraction Pattern: Absent - Labs Labs: Abnormal Labs 12/06/16 12/06/16 16:26 19:37 RBC 3.56 L Jennings % (Auto) 7.9 H Creatinine 0.3 L Uric Acid 3.1 L Lactate Dehydrogenase 283 H Laboratory Results - last 24 hr 12/06/16 12/06/16 12/06/16 16:26 16:26 16:26 WBC 7.1 RBC 3.75 Hgb 10.9 Hct 32.9 MCV 88 MCH 29 MCHC 33 RDW 14.8 Plt Count 203 Lymph % (Auto) Jennings % (Auto) Eos % (Auto) Baso % (Auto) Lymph # Jennings # Eos # Baso # Seg Neutrophils % Seg Neutrophils # Creatinine 0.3 L Estimated GFR > 60 Uric Acid 3.1 L AST 20 ALT 7 Lactate Dehydrogenase 283 H Urine Color Yellow Urine Turbidity Clear Urine pH 7.0 Ur Specific Colby 1.017 Urine Protein <15 mg/dl Urine Glucose (UA) Neg Urine Ketones Neg Urine Blood Neg Urine Nitrite Neg Urine Bilirubin Neg Urine Urobilinogen < 2.0 Ur Leukocyte Esterase Neg Urine WBC (Auto) 1.0 Urine RBC (Auto) 1.0 U Epithel Cells (Auto) 1.0 Urine Mucus Few Blood Type Antibody Screen 12/06/16 12/06/16 19:37 19:37 WBC 6.6 RBC 3.56 L Hgb 10.3 Hct 31.4 MCV 88 MCH 29 MCHC 33 RDW 14.6 Plt Count 187 Lymph % (Auto) 28.0 Jennings % (Auto) 7.9 H Eos % (Auto) 2.4 Baso % (Auto) 0.2 Lymph # 1.9 Jennings # 0.5 Eos # 0.2 Baso # 0.0 Seg Neutrophils % 61.5 Seg Neutrophils # 4.1 Creatinine Estimated GFR Uric Acid AST ALT Lactate Dehydrogenase Urine Color Urine Turbidity Urine pH Ur Specific Colby Urine Protein Urine Glucose (UA) Urine Ketones Urine Blood Urine Nitrite Urine Bilirubin Urine Urobilinogen Ur Leukocyte Esterase Urine WBC (Auto) Urine RBC (Auto) U Epithel Cells (Auto) Urine Mucus Blood Type B POSITIVE Antibody Screen Negative
[2016-12-07] MEDS: LACTATED RINGERS 1,000 ML IV SCH ×2 (08:33→17:09)
[2016-12-07 09:39] LABS: Urine Drugs of Abuse Note Disclamer
[2016-12-07] MEDS ORDERED: PRENATAL VITAMIN PO SCH (10:00)
[2016-12-07] MEDS: TYLENOL PO PRN ×2 (12:45→21:38)
[2016-12-07] MEDS ORDERED: CELESTONE SOLUSPAN IM ONE (19:02)
[2016-12-07] MEDS: APRESOLINE IV PRN (21:52)
[2016-12-08] MEDS: LACTATED RINGERS 1,000 ML IV SCH (03:38)
[2016-12-08] MEDS ORDERED: ANCEF/STERILE WATER 2 GM/20 ML 2 GM/20 ML SYRINGE IV ONE (08:20)
[2016-12-08] MEDS ORDERED: BICITRA ONE (08:21)
[2016-12-08] MEDS ORDERED: REGLAN ONE (08:22)
[2016-12-08] MEDS ORDERED: PEPCID IV ONE ×2 (08:22→08:31)
[2016-12-08] MEDS: APRESOLINE IV PRN (08:23)
[2016-12-08] MEDS ORDERED: REGLAN IV ONE (08:31)
[2016-12-08] MEDS ORDERED: BICITRA PO ONE (08:31)
[2016-12-08] MEDS ORDERED: ANCEF/STERILE WATER 2 GM/20 ML 2 GM/20 ML SYRINGE IV NR (09:00)
[2016-12-08] MEDS ORDERED: LACTATED RINGERS 1,000 ML IV NR (09:00)
[2016-12-08] MEDS ORDERED: PITOCin/NS 20 UNIT/1000ML DRIP 20 UNIT/1,000 ML BAG IV NR (09:00)
[2016-12-08] MEDS ORDERED: PHENERGAN PR PRN (09:50)
[2016-12-08] MEDS ORDERED: ZOFRAN IV PRN (09:50)
[2016-12-08] MEDS ORDERED: NARCAN 0.4 MG/1 ML IV PRN ×2 (09:50→12:31)
[2016-12-08] MEDS ORDERED: DILAUDID IV PRN (09:50)
[2016-12-08] MEDS ORDERED: PHENERGAN PO PRN (09:50)
--- NOTE | 2016-12-08 09:50 | Anesthesia Consultation ---
Anesthesia Consult and Med Hx Date of service: 12/08/16 - Airway Anesthetic Teeth Evaluation: Good ROM Head & Neck: Adequate Mental/Hyoid Distance: Adequate Mallampati Class: Class II Intubation Access Assessment: Good - Pulmonary Exam CTA: Yes - Cardiac Exam Cardiac Exam: No Murmur - Pre-Operative Health Status ASA Pre-Surgery Classification: ASA2 Proposed Anesthetic Plan: Epidural - Pulmonary Hx Asthma: No COPD: No Hx Pneumonia: No - Cardiovascular System Hx Hypertension: Yes - Central Nervous System Hx Seizures: No Hx Psychiatric Problems: No - Endocrine Hx Renal Disease: No Hx End Stage Renal Disease: No Hx Hypothyroidism: No Hx Hyperthyroidism: No - Hematic Hx Anemia: No Hx Sickle Cell Disease: No - Other Systems Hx Alcohol Use: No
[2016-12-08] MEDS ORDERED: fentaNYL-BUPIV 2 MCG/ML-0.125% 2 MCG/1 ML BAG EPIDURAL SCH (10:00)
[2016-12-08] MEDS ORDERED: SODIUM CHLORIDE FLUSH SYRINGE 10 ML IV NR ×2 (10:00→13:00)
[2016-12-08] MEDS ORDERED: ZOFRAN ONE ×2 (11:20→14:37)
[2016-12-08] MEDS ORDERED: TORADOL ONE (11:20)
[2016-12-08] MEDS ORDERED: NACL 0.9% IR ONE (11:25)
[2016-12-08] MEDS ORDERED: WATER FOR IRRIG STERILE IR ONE (11:25)
--- NOTE | 2016-12-08 12:22 | Operative Report ---
Operative Report Operative Report: Date of procedure: 12/08/2016 Pre-operative diagnosis: 1. Intrauterine at 35 2/7 weeks 2. Preeclampsia 3. Nonreassuring surveillance Post-operative diagnosis: Same Procedure name(s): Primary low transverse section Surgeon: Mundo Yuen MD Classroom Coordinator: None Anesthesia: Spinal epidural anesthesia by Dr. Cristina Lange EBL: 500 mL's Findings: A 2507 g female infant Apgars 8 at 1 minute 9 at 5 minutes. Clear amniotic fluid. Normal uterus. Normal tubes and ovaries bilaterally. Procedure: After the patient was prepped and draped in usual sterile fashion, and after satisfactory level of epidural anesthesia was obtained, the skin knife was used to make a transverse skin incision. The incision was excised down to layer of the fascia, which was nicked in the midline and extended laterally using the Bovie cautery. The rectus muscles were dissected off the rectus fascia both superiorly and inferiorly. The rectus bellies in the midline, and the peritoneum was entered under direct visualization. The peritoneal incision was extended superiorly and inferiorly. A bladder flap was created and the bladder blade was then placed. The uterus was scored in a curvilinear linear fashion, entered in the midline revealing clear amniotic fluid. The infant's head was delivered onto the surgical field, and the oropharynx and nasopharynx were bulb suctioned. The rest of the 's body was delivered, cord was doubly clamped and cut and the infant was handed to the waiting respiratory team. The placenta was manually removed from the uterus, and the uterus removed from its normal anatomical position. After gentle uterine lavage, the incision was inspected and found to be without extensions. It was then closed in 2 layers using 0 Vicryl suture in a running interlocking fashion, the second layer imbricating the first. After good hemostasis was achieved, copious amounts or irrigation was performed, and the gutters were suctioned free of blood and blood clots. Tisseel sealant was sprayed across the uterine incision. The uterus was then returned to its normal anatomical position, and after excellent hemostasis assured, the peritoneum was reapproximated using 3-0 Vicryl suture in a running interlocking fashion, and then the rectus muscles were reapproximated using 3-0 Vicryl suture in a figure- of-eight configuration. The fascia was then reapproximated using 0 Vicryl suture in running interlocking fashion. The subcutaneous layer was made hemostatic using Bovie cautery, the Tisseel sealant was sprayed across the fascial incision and the skin edges reapproximated using 4-0 Vicryl suture in a subcuticular fashion. Patient tolerated the procedure well was transported to recovery in stable condition.
[2016-12-08] MEDS ORDERED: TUCKS PAD TP PRN (12:31)
[2016-12-08] MEDS ORDERED: TORADOL IV PRN (12:31)
[2016-12-08] MEDS ORDERED: NORCO 5/325 PO PRN (12:31)
[2016-12-08] MEDS ORDERED: LANSINOH TP PRN (12:31)
[2016-12-08] MEDS ORDERED: SENOKOT PO PRN (12:31)
[2016-12-08] MEDS ORDERED: D5LR 1,000 ML IV SCH (13:00)
[2016-12-08] MEDS ORDERED: PITOCin/NS 20 UNIT/1000ML DRIP 20 UNIT/1,000 ML BAG IV SCH (13:00)
--- NOTE | 2016-12-08 18:52 | Post Anesthesia Evaluation ---
- Post Anesthesia Evaluation Patient Participated: Yes Airway Patent: Yes Stable Respiratory Function: Yes Nausea/Vomiting: No Temp > 96.8F: Yes Pain Manageable: Yes Anesthesia Complications: No
[2016-12-08] MEDS: SENOKOT S PO PRN (20:53)
[2016-12-08] MEDS: ANCEF/NS 1 GM/50 ML 1 GM/50 ML BAG IV SCH (20:54)
[2016-12-09 01:36] LABS: Hematocrit 29.4 % (30.3-42.9); Hemoglobin 9.4 gm/dl (10.1-14.3)
[2016-12-09] MEDS ORDERED: ANCEF/NS 1 GM/50 ML 1 GM/50 ML BAG IV SCH (04:00)
[2016-12-09] MEDS: ANCEF/NS 1 GM/50 ML 1 GM/50 ML BAG IV SCH (04:21)
--- NOTE | 2016-12-09 11:44 | Progress Note ---
Assessment and Plan - Patient Problems (1) 35 weeks gestation of Onset Date: 12/07/16 Current Visit: Yes Status: Resolved (2) Hypertension affecting in third trimester Onset Date: 12/07/16 Current Visit: No Status: Acute (3) Status post primary low transverse section Onset Date: 12/09/16 Current Visit: Yes Status: Resolved Plan to address problem: A: S/P LTCS - POD #1 Doing well PIH - elevated BP's Asymptomatic anemia P: Continue RPOC Will begin Labetolol 200mg BID Subjective - Subjective Date of service: 12/09/16 Principal diagnosis: s/p LTCS - POD #1 Interval history: Pt is feeling well without complaints. Bleeding improved. BP elevated 160/88. She denies headaches or blurred vision. Patient reports: appetite normal, voiding normally, pain well controlled, ambulating normally, no flatus : doing well Objective - Vital Signs Latest vital signs: Vital Signs Temp Pulse Pulse Resp BP BP BP 12/09/16 08:35 98.5 F 65 18 160/88 12/09/16 04:30 98.6 F 72 20 141/73 12/09/16 00:00 98.6 F 60 22 123/70 12/08/16 17:30 98.5 F 70 18 128/68 12/08/16 14:00 97.5 F L 60 16 154/92 12/08/16 13:20 97.6 F 64 13 150/85 12/08/16 13:05 55 L 20 138/78 12/08/16 12:50 58 L 20 140/76 12/08/16 12:45 59 L 18 135/83 12/08/16 12:40 60 18 145/80 12/08/16 12:30 97.9 F 63 18 134/68 Pulse Ox 12/09/16 08:35 12/09/16 04:30 12/09/16 00:00 12/08/16 17:30 12/08/16 14:00 12/08/16 13:20 100 12/08/16 13:05 100 12/08/16 12:50 100 12/08/16 12:45 100 12/08/16 12:40 100 12/08/16 12:30 100 Intake and Output 12/08/16 12/09/16 12/09/16 22:59 06:59 14:59 Intake Total 1405 625 480 Output Total 600 600 600 Balance 805 25 -120 Intake: IV 1045 625 ANCEF/NS 1 GM/50 ML 1 gm 50 In 50 ml @ 0 mls/hr IV Q8H ASHLEY Rx#:[id number] D5lr 1,000 ml @ 125 mls/ 495 625 hr IV DIRECT ASHLEY Rx#: [id number] PITOCin/NS 20 UNIT/1000ML 500 DRIP 20 unit In 1,000 ml @ 125 mls/hr IV TITR NR Rx#:[id number] Oral 360 480 Output: Urine 500 600 600 Uretheral ([place]) 500 600 Void 600 Emesis 100 Other: Total, Intake Amount 360 480 Total, Output Amount 100 300 - Exam Breasts: Present: deferred Cardiovascular: Present: Regular rate Lungs: Present: Clear to auscultation Abdomen: Present: normal appearance, soft Uterus: Present: normal, firm, fundal height below umbilicus Extremities: Present: normal Incision: Present: normal, dry, intact, dressed - Labs Labs: Abnormal lab results 12/09/16 Range/Units 00:34 Hgb 9.4 L (10.1-14.3) gm/dl Hct 29.4 L (30.3-42.9) % Laboratory Tests 12/06/16 12/06/16 12/06/16 16:26 16:26 16:26 WBC 7.1 RBC 3.75 Hgb 10.9 Hct 32.9 MCV 88 MCH 29 MCHC 33 RDW 14.8 Plt Count 203 Lymph % (Auto) [place] % (Auto) Eos % (Auto) Baso % (Auto) Lymph # Swisher # Eos # Baso # Seg Neutrophils % Seg Neutrophils # Creatinine 0.3 L Estimated GFR > 60 Uric Acid 3.1 L AST 20 ALT 7 Lactate Dehydrogenase 283 H Urine Color Yellow Urine Turbidity Clear Urine pH 7.0 Ur Specific [place] 1.017 Urine Protein <15 mg/dl Urine Glucose (UA) Neg Urine Ketones Neg Urine Blood Neg Urine Nitrite Neg Urine Bilirubin Neg Urine Urobilinogen < 2.0 Ur Leukocyte Esterase Neg Urine WBC (Auto) 1.0 Urine RBC (Auto) 1.0 U Epithel Cells (Auto) 1.0 Urine Mucus Few Urine Total Volume Ur Total Protein 24 Hr Urine Total Protein Urine Opiates Screen Urine Methadone Screen Ur Barbiturates Screen Ur Phencyclidine Scrn Ur Amphetamines Screen U Benzodiazepines Scrn Urine Cocaine Screen U Marijuana (THC) Screen Drugs of Abuse Note Blood Type Antibody Screen 12/06/16 12/06/16 12/07/16 19:37 19:37 08:37 WBC 6.6 RBC 3.56 L Hgb 10.3 Hct 31.4 MCV 88 MCH 29 MCHC 33 RDW 14.6 Plt Count 187 Lymph % (Auto) 28.0 Sw[place] % (Auto) 7.9 H Eos % (Auto) 2.4 Baso % (Auto) 0.2 Lymph # 1.9 Swisher # 0.5 Eos # 0.2 Baso # 0.0 Seg Neutrophils % 61.5 Seg Neutrophils # 4.1 Creatinine Estimated GFR Uric Acid AST ALT Lactate Dehydrogenase Urine Color Urine Turbidity Urine pH Ur Specific [place] Urine Protein Urine Glucose (UA) Urine Ketones Urine Blood Urine Nitrite Urine Bilirubin Urine Urobilinogen Ur Leukocyte Esterase Urine WBC (Auto) Urine RBC (Auto) U Epithel Cells (Auto) Urine Mucus Urine Total Volume Ur Total Protein 24 Hr Urine Total Protein Urine Opiates Screen Presumptive negative Urine Methadone Screen Presumptive negative Ur Barbiturates Screen Presumptive negative Ur Phencyclidine Scrn Presumptive negative Ur Amphetamines Screen Presumptive negative U Benzodiazepines Scrn Presumptive negative Urine Cocaine Screen Presumptive negative U Marijuana (THC) Screen Presumptive negative [facility] Type B POSITIVE Antibody Screen Negative 12/07/16 12/09/16 18:35 00:34 WBC RBC Hgb 9.4 L Hct 29.4 L MCV MCH MCHC RDW Plt Count Lymph % (Auto) Swisher % (Auto) Eos % (Auto) Baso % (Auto) Lymph # Swisher # Eos # Baso # Seg Neutrophils % Seg Neutrophils # Creatinine Estimated GFR Uric Acid AST ALT Lactate Dehydrogenase Urine Color Urine Turbidity Urine pH Ur Specific [place] Urine Protein Urine Glucose (UA) Urine Ketones Urine Blood Urine Nitrite Urine Bilirubin Urine Urobilinogen Ur Leukocyte Esterase Urine WBC (Auto) Urine RBC (Auto) U Epithel Cells (Auto) Urine Mucus Urine Total Volume 1400 Ur Total Protein 24 Hr 462.00 H Urine Total Protein 33 H Urine Opiates Screen Urine Methadone Screen Ur Barbiturates Screen Ur Phencyclidine Scrn Ur Amphetamines Screen U Benzodiazepines Scrn Urine Cocaine Screen U Marijuana (THC) Screen Drugs of Abuse Note Blood Type Antibody Screen
[2016-12-09] MEDS: FEOSOL PO SCH (12:27)
[2016-12-09] MEDS: MOTRIN PO PRN ×2 (12:27→17:54)
[2016-12-09] MEDS: SENOKOT S PO PRN (12:30)
[2016-12-09] MEDS ORDERED: BOOSTRIX IM ONE (12:33)
[2016-12-09] MEDS ORDERED: M-M-R II VACCINE SUB-Q ONE (12:33)
[2016-12-09] MEDS: NORMODYNE PO SCH ×2 (13:13→22:04)
[2016-12-10] MEDS: PERCOCET 5/325 PO PRN ×2 (04:56→19:30)
[2016-12-10] MEDS ORDERED: BOOSTRIX IM ONE (06:00)
--- NOTE | 2016-12-10 08:04 | Progress Note ---
Assessment and Plan AA: S/P LTCS - POD #2 Doing well PIH - elevated BP's Asymptomatic anemia P: -Will add procardia 30mg XL to present regime -Continue present care -Anticipate D/C in 24 hrs - Patient Problems (1) 35 weeks gestation of Onset Date: 12/07/16 Current Visit: Yes Status: Resolved (2) Hypertension affecting in third trimester Onset Date: 12/07/16 Current Visit: No Status: Acute Subjective - Subjective Date of service: 12/10/16 Principal diagnosis: s/p LTCS - POD #2 Interval history: Patient seen and examined, stable doing well. Blood pressure remained labile 150s were 90 systolic diastolic, he has adequate bowel bladder function ambulating without difficulty Patient reports: appetite normal, voiding normally, pain well controlled, bowel movement, ambulating normally, no dizzy ambulation : doing well Objective - Vital Signs Latest vital signs: Vital Signs Temp Pulse Pulse Resp BP BP 12/10/16 04:56 18 12/10/16 04:40 98.6 F 70 20 150/70 12/10/16 00:45 98.6 F 65 16 149/73 12/09/16 22:04 69 159/77 12/09/16 20:20 98.6 F 75 16 164/78 12/09/16 17:00 98.5 F 66 20 158/72 12/09/16 13:13 156/79 12/09/16 08:35 98.5 F 65 18 160/88 Intake and Output 12/09/16 12/10/16 12/10/16 22:59 06:59 14:59 Intake Total 500 450 Balance 500 450 Intake: Oral 500 450 Other: Total, Intake Amount 500 450 # Voids Void 1 - Exam Abdomen: Present: normal appearance, soft. Absent: distention, tenderness, guarding, rigidity Uterus: Present: fundal height below umbilicus. Absent: tenderness Extremities: Present: normal Incision: Present: dry, intact
[2016-12-10] MEDS: NORMODYNE PO SCH ×2 (10:05→22:00)
[2016-12-10] MEDS: FEOSOL PO SCH (10:06)
[2016-12-10] MEDS: PROCARDIA XL PO SCH (10:06)
[2016-12-10] MEDS: MOTRIN PO PRN (12:57)
[2016-12-11] MEDS: MOTRIN PO PRN ×2 (05:46→16:15)
[2016-12-11] MEDS: FEOSOL PO SCH (09:25)
[2016-12-11] MEDS: PROCARDIA XL PO SCH (09:26)
[2016-12-11] MEDS: NORMODYNE PO SCH ×2 (09:26→22:17)
--- NOTE | 2016-12-11 12:19 | Progress Note ---
Assessment and Plan AA: S/P LTCS - POD #3 Doing well PIH - elevated BP's Asymptomatic anemia P: -Will discharge home at this time -Discussed need to check her blood pressure at home, she has a Sphyg at home Reviewed values to call, any systolic over 160 or diastolic of 100 -In clinic in 4-7 days - Patient Problems (1) 35 weeks gestation of Onset Date: 12/07/16 Current Visit: Yes Status: Resolved (2) Hypertension affecting in third trimester Onset Date: 12/07/16 Current Visit: No Status: Acute (3) Status post primary low transverse section Onset Date: 12/09/16 Current Visit: Yes Status: Resolved Subjective - Subjective Date of service: 12/11/16 Principal diagnosis: s/p LTCS - POD #3 Interval history: Patient seen and examined, stable doing well. Blood pressure remained labile 150s were 90 systolic diastolic, she has adequate bowel bladder function ambulating without difficulty Patient reports: appetite normal, voiding normally, pain well controlled, flatus , ambulating normally, no dizzy ambulation [place]: doing well Objective - Vital Signs Latest vital signs: Vital Signs Temp Pulse Pulse Resp BP BP BP 12/11/16 08:10 138/88 12/11/16 05:45 158/80 12/11/16 05:00 98.4 F 105 H 20 162/87 12/11/16 00:35 98.2 F 93 H 20 142/71 12/10/16 22:00 81 153/74 12/10/16 20:18 98.4 F 82 20 140/70 12/10/16 18:00 98.3 F 76 20 129/84 12/10/16 13:25 98 F 66 20 161/88 Intake and Output 12/10/16 12/11/16 12/11/16 22:59 06:59 14:59 Intake Total 360 480 120 Balance 360 480 120 Intake: Oral 360 240 120 Intake, Free Water 240 Other: Total, Intake Amount 240 240 120 # Voids Void 1 1 1 - Exam Abdomen: Present: normal appearance, soft. Absent: distention, tenderness, guarding, rigidity Uterus: Absent: tenderness Incision: Present: dry, intact
--- NOTE | 2016-12-11 12:35 | Discharge Summary ---
Providers - Providers Date of Admission: 12/07/16 08:48 Date of discharge: 12/11/16 Attending physician: JESSICA ANDREW Primary care physician: JESSICA ANDREW Hospitalization Reason for admission: observation (blood pressure suspect preeclampsia) Delivery: Procedure: primary low transverse Incision: normal, dry, intact Other procedures: none complications: other (Elevated blood pressure) Discharge diagnosis: IUP at term delivered, other (preeclampsia) baby: female Hospital course: 26-year-old at 35 weeks presents with above complaints and issues; she is a [facility] patient. Essential history is patient was seen at [facility] office today. She had a BP of 171/115 and repeat of 149/91 when seated. She denied symptoms of preeclampsia, had a BPP 8/8. [facility] recommendation was low threshold for delivery if BP remains elevated. Was asked to follow-up with her doctor if symptoms develop. She presented to [facility] today and complained of headache visual symptoms, she was refered here for further care. In triage, patient's blood pressure was noted to be elevated with range 140s systolic over 70s to 90s diastolic; she idoes complain of headache and spots, no scotomata. Review of chart shows seen admission on 11/21/2016 for similar complaint above. She left AGAINST MEDICAL ADVICE She does have a history of elevated blood pressures in her prior 2014 ; work-up for preeclampsia was negative. Review of the chart shows a visit in March 2015 with blood pressure noted in the emergency room on 130/90, unsure of her primary care visits while not . Was admitted, 24-hour urine protein was started which was elevated at 400 She was C-sectioned due to preeclampsia and category 2 tracing with decelerations. pOST-op course complicated by elevated blood pressure managed with labetalol and Procardia. Condition at discharge: Good Disposition: DISCHARGED TO HOME OR SELFCARE - Discharge Diagnoses (1) 35 weeks gestation of Status: Resolved (2) Hypertension affecting in third trimester Status: Acute (3) Status post primary low transverse section Status: Resolved Plan - Discharge Medications Prescriptions: Ferrous Sulfate [Feosol 325 MG tab] 325 mg PO BID #60 tablet HYDROcodone/APAP 5-325 [[place] 5/325] 1 each PO Q6HR PRN #30 tablet PRN Reason: Pain Ibuprofen [Motrin] 800 mg PO Q8HR PRN #30 tablet PRN Reason: Moder Pain Unrelieved By [place] Labetalol [Normodyne TAB] 200 mg PO BID #30 tablet Vit W-Ca,Fe,FA(<1 mg) [ Vitamins] 1 each PO DAILY #30 tablet - Provider Discharge Summary Activity: no sex for 6 weeks, no heavy lifting 4 weeks, no strenuous exercise Diet: routine Additional instructions: [] Smoking cessation referral if applicable(refer to patient education folder for contact #) [] Refer to [facility]'s [facility] Booklet Call your doctor immediately for: * Fever > 100.5 * Heavy vaginal bleeding ( >1 pad per hour) * Severe persistent headache * Shortness of breath * Reddened, hot, painful area to leg or breast * Drainage or odor from incision. * Keep incision clean and dry at all times and follow doctor's instructions regarding bathing/showering - Follow up plan Follow up: JESSICA ANDREW MD [Primary Care Provider] - 3 Days
[2016-12-12] MEDS: FEOSOL PO SCH (10:20)
[2016-12-12] MEDS: NORMODYNE PO SCH (10:20)
[2016-12-12] MEDS: PROCARDIA XL PO SCH (10:20)
[2016-12-12 18:16] VITALS: BP 140/64
== END 2016-12-12 15:00 | disposition home or self-care (01) | DRG 766 ==
LOC: TRG 15:15 → LD 16:45 → OBSVTOIN 12-07 08:48 → OB 12-08 14:39
PROVIDERS: ADMIT Obstetrics & Gynecology Gynecology; ATTEND Obstetrics & Gynecology Gynecology
PROC: 10D00Z1 Extraction of Products of Conception, Low, Open Approach (ICD-10-PCS; principal; 2016-12-08)
DX: O14.94 Unspecified pre-eclampsia, complicating childbirth (principal); O13.4 Gestational [pregnancy-induced] hypertension without significant proteinuria, complicating childbirth; O76 Abnormality in fetal heart rate and rhythm complicating labor and delivery; O99.02 Anemia complicating childbirth; D64.9 Anemia, unspecified; Z3A.35 35 weeks gestation of pregnancy; Z37.0 Single live birth
CPT/HCPCS: 36415; 80307; 81001; 82565; 83615; 84156; 84450; 84460; 84550; 85014; 85018; 85025; 85027; 86850; 86900; 86901; 88307; 90471; 90715; 99211; C9250; G0378; G0463; J0360; J0690; J0702; J1885; J2405; J2590; J2765; J7120; J7121